=== PATIENT | female | born 2000 | race Two or more races ===

== ENCOUNTER 2025-04-01 11:13 | Outpatient (AMB) | payer MEDICAID, SELFPAY ==
[2025-04-01 11:34] VITALS: BP 115/72; PULSE 81; RESP 17; TEMP 36.4; O2SAT 98; BMI 32.7
--- NOTE | 2025-04-01 11:34 | AMB.OBVISIT ---
Vital Signs 04/01/25 11:34 Height 1.52 m Height Method Measured Weight 75.977 kg Weight Measurement Method Standing Scale BMI 32.7 BP 115/72 Blood Pressure Source Automatic Cuff Blood Pressure Location Right Upper Arm Position Sitting Respiration 17 Pulse 81 Pulse Source Monitor Temp 97.5 F Temp Source Temporal Artery Scan Pulse Oximetry (%) 98 Oxygen Delivery Method Room Air Allergies/Home Meds Allergies & Medications Allergies shrimp Allergy (Verified 04/01/25 11:35) Rash Medication Reconciliation prenat.vits,serina,[id number] 1 tab PO QDAY 08/14/22 [History Confirmed 04/01/25] acetaminophen 500 mg capsule 500 mg PO Q6H PRN fever or pain #20 caps 09/13/22 [Rx Confirmed 04/01/25] albuterol sulfate 90 mcg/actuation aerosol inhaler inhalation PRN PRN Shortness Of Breath Or Wheezing 10/13/22 [History Confirmed 04/01/25] clotrimazole 2 % vaginal cream (Gyne-Lotrimin) 1 appful vaginal QHS 7 days #21 grams 03/01/25 [Rx Confirmed 04/01/25] vits no.130-ferrous fum 27 mg iron-folic acid 800 mcg tablet ( Vitamin) 1 tab PO QDAY pregancy #60 tabs 04/01/25 [Rx] Intake Visit Data Collection New Patient or Established: Established Patient (seen at [facility] within 3 years) Reason for Visit:: [facility] Consent obtained for Telemed Visit: No Seen by Clinical Staff ONLY (RN/MA): No Acoustic Warfare Analyst Required: No Do You Feel Safe at Home: Yes Authorities Contacted: N/A PCP or OBGYN visit in last 3 months: Yes Date of Last PCP or OBGYN visit: 03/01/25 Hx Now: Yes Are you currently on any form of Control: No Pain Present Currently: No Pain Scale Used: Chery-Patel/Numerical Pain scale:: 0 Smoking Status Smoking Status: Never smoker Questionnaires Covid-19 Vaccine Questionnaire Has patient been vacinated for Covid-19 Have you been vacinated for Covid-19: No PHQ-9 PHQ-2 Over the last 2 weeks, how often have you been bothered by any of the following problems? 1. Little interest or pleasure in doing things: not at all PHQ-9 8. Moving or speaking so slowly that other people could have noticed? - Or the opposite - being so fidgety or restless that you have been moving around a lot more than usual: not at all Source: Developed by Drs. Ren Mckeon, Candi Champagne, Dakota Borrego and colleagues, with an educational italo from [employer] ([employer]). Social History Living Situation History Housing: House Tobacco History Smoking Status: Never smoker Alcohol History Alcohol Intake: Never Domestic Abuse History Do You Feel Safe at Home: Yes PATIENT RELATIONS REPRESENTATIVE: Past Medical History Past Medical History: No Hx Neurological Disorders, No Hx Cardiac Disorders, No Hx Cancer, No Hx Blood Disorders, Yes Hx Gastrointestinal Disorders (constipation and cholestasis), No Hx Renal Disease, No Hx Diabetes Mellitus Type 1 and No Hx Diabetes Mellitus Type 2 Care OB Visit Log OB Flowsheet Initial Weight: Not Recorded Date <del>?</del> EGA Weight BP Alb Glu CTX Pres Fundal ht FHR Mov Dilation Station Effacement Hx Notes Visit Note 03/01/25 <del>?</del> 15w 4d 73.595 kg 73.595 kg 112/74 112/74 absent unknown 15 145 active 24-year-old 2 para 1 at 15 weeks. New OB with complaints of vaginal discharge and burning unclear denies SAB complaints. Green discharge noted. Order PATIENT RELATIONS REPRESENTATIVE Lotrimin 1-2 per vagina nightly x 7. New swab plus today. PATIENT RELATIONS REPRESENTATIVE Lotrimin x 7 days. Schedule anatomy scan. I reviewed labs and chart with patient. aFP next visit. Discussed SAB precautions 04/01/25 <del>?</del> 20w 0d 75.977 kg 115/72 absent unknown 20 145 active Reports movement. Maternal- medicine was not called patient. Denies leaking, denies bleeding, denies contractions. Patient needs refill on prenatals. Complains of itching chest feet hands. Previous history of cholestasis in Cholestasis labs today. Discussed OB labs. MFM ultrasound pending. Comfort measures for body itching. Discussed labor precautions and return in 4 weeks OB check UNIQUE Calculator Estimated Delivery Date Method Current WG Current Estimate 08/19/25 Ultrasound #1 20w 0d Other Estimates 01/01/26 LMP (Certain) 21w 0d Notes Visit Date: 04/01/25 Last Updated by: Shelley Cody CNM NIPT-.AFP- Visit Date: 03/01/25 Last Updated by: Shelley Cody CNM 24 yo . lmp 11/05/24. edc: 08/12/25. A+.abs-,rpr;;nr, rub imm, HBSAG-,hiv-, hc-, GC/CT-, UC:-, UT-, NIPT_, carrier screen-, PAP- Office Procedures OB Clinic LOC & Office Proc's Nursing/Assessment Patient Status: Established Patient OB Clinic Nursing Assessment: Medication Reconciliation, Update PMH in EMR and Vital Signs OB Clinic Coordination of Care: Complex Care and Chronic Disease 1-5, Education Complex Pt/Fam and Results/Orders obtained Special Needs: Heart tones Established Patient Charge Established Patient Point Assignment: 110 Established Patient Point Charge: EP Level 3 (80-115) Assessment & Plan Diagnosis / Problem List (1) Encounter for supervision of high risk in second trimester, antepartum: Status: Acute Plan Cholestasis labs today. Patient will call [facility] for MFM appointment. Discussed labor precautions. Discussed comfort measures for body itching. Manage discussed AFP with patient. Return in 4 weeks for recheck Additional Plan Follow Up: 4 Weeks (obc)
== END 2025-04-01 12:07 | disposition home or self-care (01) ==
LOC: HODSOBC 11:13
PROVIDERS: Supervising Provider Advanced Practice Midwife; Visit Provider Advanced Practice Midwife
DX: O09.292 Supervision of pregnancy with other poor reproductive or obstetric history, second trimester (principal); Z87.59 Personal history of other complications of pregnancy, childbirth and the puerperium; Z87.19 Personal history of other diseases of the digestive system; Z91.013 Allergy to seafood
CPT/HCPCS: 99213; G0463

== ENCOUNTER 2025-04-22 11:55 | Emergency (ER) | payer MEDICAID, SELFPAY ==
[2025-04-22] VITALS (19 sets, daily range): BP systolic 113–124; BP diastolic 72; PULSE 94–114; RESP 18–100; TEMP 37.1–37.5; O2SAT 97–100; BMI 31.1
--- NOTE | 2025-04-22 12:22 | EKG_ITS ---
[facility] Test Date: 2025-04-22 Pat Name: CONSUELO DING Department: Room: - Gender: Female Revising Clerk: : [id number] Requested By: José Miguel Caraballo (ROGER) Order Number: [id number] Reading MD: José Miguel Caraballo (MONORAIL OPERATOR) Measurements Intervals [place] Rate: 93 P: 52 MT: 150 QRS: 54 QRSD: 92 T: 8 QT: 304 QTc: 380 Interpretive Statements SINUS RHYTHM NONSPECIFIC T-WAVE ABNORMALITY No previous ECG available for comparison /store/S0/[id number].pdf
--- NOTE | 2025-04-22 12:24 | XR_ITS ---
Examination: PA chest single view TECHNIQUE: Upright PA chest single view Date and time: April 22, 2025 1255 hours INDICATIONS: Chest pain shortness of breath headaches beginning 5 days ago. FINDINGS: Normal heart size. Lungs are clear. The osseous structures are intact IMPRESSION: No active disease
--- NOTE | 2025-04-22 12:25 | PD.EDRME ---
Rapid Medical Screening Exam RME Arrival date/time: 04/22/25 11:55 24-year-old female presents to the emergency department today for complaints of chest pressure and chest pain patient reports being approximate 24 weeks patient was seen OB and was referred to the ER for further evaluation Chief Complaint: Chest Pain Vital signs: Vital Signs Temperature 98.8 F 04/22/25 10:31 Pulse Rate 110 H 04/22/25 10:31 Respiratory Rate 20 04/22/25 10:31 Blood Pressure 124/72 04/22/25 10:31 Pulse Oximetry (%) 100 04/22/25 10:31 Oxygen Delivery Method Room Air 04/22/25 10:31
[2025-04-22 13:03] LABS: Basophils # (Auto) 0.0 Thou/mm3 (0.0-0.2); Basophils % (Auto) 0 % (0-2.5); Eosinophils # (Auto) 0.1 Thou/mm3 (0.0-0.5); Eosinophils % (Auto) 2 % (0-10); Hematocrit 34.7 % (36.0-46.0); Hemoglobin 11.9 g/dL (12.0-16.0); Immature Granulocytes Auto 0.13 Thou/mm3 (0.00-0.00); Lymphocytes # (Auto) 1.2 Thou/mm3 (1.0-4.8); Lymphocytes % (Auto) 15 % (10-50); Mean Corpuscular HGB Conc 34.3 g/dl (31.0-37.0); Mean Corpuscular Hemoglobin 30.4 pg (25.0-35.0); Mean Corpuscular Volume 89 fL (80-100); Monocytes # (Auto) 0.7 Thou/mm3 (0.0-0.8); Monocytes % (Auto) 9 % (0-12); Neutrophils # (Auto) 5.8 Thou/mm3 (1.8-7.7); Neutrophils % (Auto) 73 % (37-80); Nucleated Red Blood Cell # 0.00 Thou/mm3 (0.00-0.00); Nucleated Red Blood Cell % 0 /100 WBC (0); Platelet Count 192 Thou/mm3 (140-440); RDW Standard Deviation 42.5 fL (36.4-46.3); Red Blood Count 3.91 Miln/mm3 (4.00-5.20); White Blood Count 7.9 Thou/mm3 (3.6-11.0)
[2025-04-22 13:23] LABS: Alanine Aminotransferase 16 U/L (10-49); Albumin, Serum 4.0 gm/dL (3.5-5.0); Albumin/Globulin Ratio 1.7 (1.2-2.2); Alkaline Phosphatase 135 U/L (46-116); Anion Gap 8 (7-16); Aspartate Amino Transferase 19 U/L (0-34); BUN/Creatinine Ratio 10 Ratio (12-20); Bilirubin,Total 0.4 mg/dL (0.3-1.2); Blood Urea Nitrogen 6 mg/dL (9-23); Calcium 9.2 mg/dL (8.3-10.6); Calcium (Corrected) 9.2 mg/dL (8.5-10.1); Carbon Dioxide 24.9 mMol/L (20.0-31.0); Chloride 103 mMol/L (98-107); Creatinine (Component) 0.6 mg/dL (0.6-1.3); Estimated Creatinine Clearance 139.0 mL/min (>60); Globulin 2.4 gm/dL (2.3-3.5); Glucose 77 mg/dL (74-106); Osmolality,Calculated 268 (275-295); Potassium 3.9 mMol/L (3.4-5.1); Sodium 136 mMol/L (136-145); Total Protein 6.4 gm/dL (5.7-8.2); Troponin I < 0.002 ng/mL (0.0-0.045); eGFR > 60 See Note
[2025-04-22 13:32] LABS: D-Dimer 620 ng/mL (<600)
[2025-04-22 13:44] LABS: Beta HCG,Quantitative 5623 mIU/mL (<5.0)
--- NOTE | 2025-04-22 14:56 | PD.EDSOB ---
ED SOB =RME/HPI General Chief Complaint: Chest Pain Stated Complaint: SOB, C/P. OB CLEARED Time Seen by Provider: 04/22/25 12:25 Arrival date/time: 04/22/25 11:55 Limitations: no limitations RME / HPI RME / HPI Narrative: 04/22/25 11:55 24-year-old female presents to the emergency department today for complaints of chest pressure and chest pain patient reports being approximate 24 weeks patient was seen OB and was referred to the ER for further evaluation DR. SOUZA MAIN ED EVALUATION: 24 year old female with history of asthma and currently 24 weeks gestational age presents to the ED referred by her OBGYN for evaluation of chest pain. Pain located across her chest that is described as aching in sensation, rating as mild to moderate. Accompanied by feeling short of breath. Reportedly used her inhaler last night with no improvement. No other associated symptoms or complaints reported. Denies dizziness, fevers, chills, cough, abdominal pain, n/v/d, urinary symptoms, or leg swelling. Related Data Home Medications ?Medication ?Instructions ?Recorded ?Confirmed prenat.vits,serina,[id number] 1 tab PO QDAY 08/14/22 04/01/25 albuterol sulfate 90 mcg/actuation inhalation PRN PRN Shortness Of 10/13/22 04/01/25 aerosol inhaler Breath Or Wheezing Previous Rx's ?Medication ?Instructions ?Recorded acetaminophen 500 mg capsule 500 mg PO Q6H PRN fever or pain 09/13/22 #20 caps clotrimazole 2 % vaginal cream 1 appful vaginal QHS 7 days #21 03/01/25 (Gyne-Lotrimin) grams vits no.130-ferrous fum 1 tab PO QDAY pregancy #60 tabs 04/01/25 27 mg iron-folic acid 800 mcg tablet ( Vitamin) fluticasone 250 mcg-salmeterol 50 1 inh inhalation Q12H asthma #60 ea 04/22/25 mcg/dose blistr powdr for inhalation (Advair Diskus) Allergies Allergy/AdvReac Type Severity Reaction Status Date / Time shrimp Allergy Rash Verified 04/22/25 12:10 Review of Systems Review of Systems Systems Reviewed: All systems reviewed, normal except as documented Past Medical History Past Medical History NEUROLOGIC: Negative Neurological Disorders CARDIAC: Negative Cardiac Disorders RESPIRATORY: Positive Asthma (uses inhaler) GASTROINTESTINAL: Positive Gastrointestinal Disorders (constipation and cholestasis) GENITOURINARY: Negative Genitourinary Disorders or Renal Disease MUSCULOSKELETAL: Negative Musculoskeletal Disorders ENDOCRINE: Negative Endocrine Disorders Family History FAMILY HISTORY: Positive Family Cardiac Disorders (blood pressure high, grandmothers) Surgical History SURGICAL: Negative Section Social History SMOKING STATUS: Never smoker ED Exam General Limitations: Present no limitations General appearance: Present alert and in no apparent distress Head Head exam: Present atraumatic, normocephalic and normal inspection Eye Eye exam: Present normal appearance, PERRL and EOMI ENT ENT exam: Present normal exam, normal oropharynx and mucous membranes moist Neck Neck exam: Present normal inspection, full ROM and trachea midline Chest Chest inspection: Present normal inspection and symmetric chest wall rise Respiratory Respiratory exam: Present other (Slight coarse breath sounds in the mid lung lobes to bilateral lower lobes, no wheezing, no rhonchi, no rales ) Cardiovascular Cardiovascular exam: Present regular rate, normal rhythm and normal heart sounds Abdominal Exam Abdominal exam: Present soft, normal bowel sounds and other (gravid fundus consistent with gestational age ) Extremities Exam Extremities exam: Present normal inspection and full ROM Back Exam Back exam: Present normal inspection and full ROM Neurological Exam Neurological exam: Present alert, oriented X3 and CN II-XII intact Psychiatric Psychiatric exam: Present normal affect and normal mood Skin Skin exam: Present warm, dry, intact and normal color Course Quality Measures none Orders Category Date Time Status Place in Observation Status Routine Admission 04/22/25 10:25 Active Continuous Monitoring Routine Care 04/22/25 11:49 Ordered EKG (ED ONLY) *Do not use* NOW Care 04/22/25 12:22 Completed Non-Stress Test Now Care 04/22/25 11:49 Completed EKG (ED Only) Stat Exams 04/22/25 12:22 Draft XR chest 1V portable Stat Exams 04/22/25 12:24 Completed Beta HCG,Quantitative Stat Lab 04/22/25 12:44 Completed CBC Stat Lab 04/22/25 12:44 Completed Comprehensive Metabolic Panel Stat Lab 04/22/25 12:44 Completed D-Dimer Stat Lab 04/22/25 12:44 Completed Troponin I Stat Lab 04/22/25 12:44 Completed ALBUTEROL RT 3ml [Proventil Rt 3ml] Med 04/22/25 14:56 Discontinued 2.5 mg INH X1 ONE Vital Signs Vital signs: Vital Signs Temperature 98.8 F 04/22/25 10:31 Pulse Rate 110 H 04/22/25 10:31 Respiratory Rate 20 04/22/25 10:31 Blood Pressure 124/72 04/22/25 10:31 Pulse Oximetry (%) 100 04/22/25 10:31 Oxygen Delivery Method Room Air 04/22/25 10:31 Pulse ox is 100% on room air which is adequate. Shortness of Breath / Dyspnea MDM Narrative MDM Narrative:: Elsie Powell am scribing for and in the presence of Dr. Souza. 24 year old female with history of asthma and currently 24 weeks gestational age, presented to the ED for evaluation of chest pain and shortness of breath. We considered pulmonary embolism along with pneumonia, and asthma exacerbation. A D-Dimer was performed and was normal at 602. Likelihood of symptoms being due to a pulmonary embolism is much lower. In the ED, patient was treated with Albuterol breathing treatment with improvement. Strict return precautions were outlined. Patient was discharged in stable condition. Patient data External records reviewed:: [facility] previous records (I reviewed ED visit on 09/11/2022 ) Clinical information provided by:: patient Social determinants that could affect healthcare access:: none Patient has the following chronic illnesses:: Asthma How is presenting disease/condition affected by chronic disease/condition?: exacerbated by Evaluation data The following diagnostics were reviewed and interpreted by me:: lab results, radiology exam(s) and EKG tracing(s) (EKG @ 12:23, NSR, rate 93, no acute ischemic changes, no STEMI. ) Lab and/or radiology exams considered but not ordered:: None Interpretation Summary: Ordering Physician: Ilya FIGUEREDO)José Miguel NP Date of Service: 04/22/25 Procedure(s): XR chest 1V portable Accession Number(s): [id number] cc: José Miguel Caraballo NP, NP; Dustin Lagos MD; Mitzi Almanzar MD~ Examination: PA chest single view TECHNIQUE: Upright PA chest single view Date and time: April 22, 2025 1255 hours INDICATIONS: Chest pain shortness of breath headaches beginning 5 days ago. FINDINGS: Normal heart size. Lungs are clear. The osseous structures are intact IMPRESSION: No active disease Dictated By: Dustin Lagos MD Signed By: <Electronically signed by Dustin Lagos MD in OV> 04/22/25 1303 Medications / Prescriptions Medications or Prescriptions considered but not ordered:: None Medication administrations:: Medication Administration History Discontinued Medications Albuterol (Albuterol Rt 2.5 Mg/3 Ml Nebu) 2.5 mg INH X1 ONE Stop: 04/22/25 14:57 Last Admin: 04/22/25 15:08 Dose: 2.5 mg Documented By: AA See above Consultations Consultation(s) initiated? (list below): Yes Consultation #1 (Physician, Specialty, Details): I spoke with OBGYN Dr. Bowling. Discussed patients PMHx, HPI, ED course, exam findings, labs, and radiology results. Time: 15:05 Diagnosis Shortness of Breath Differential Diagnosis: community acquired pneumonia, asthma with exacerbation and pulmonary embolism Most likely diagnosis given after review of the tests above:: Costochondritis Asthma with exacerbation Shortness of breath Admission Indicated Admission indicated?: not indicated Admission Request Was there a request for admission?: No Disposition Plan Disposition Plan: Discharge Discharge Attestation Discharge Attestation: The patient and all family members were given an opportunity to ask questions and understood the discharge instructions. Discharge instructions specifically effects, indications for sooner follow up or return to the emergency department, and the expected course of current diagnosis. Patient condition: Stable Discharge Plan Plan Patient Disposition: HOME (Self Care) Prescriptions/Referrals Prescriptions/Med Rec: New fluticasone propion-salmeterol [Advair Diskus] 250-50 mcg/dose blister with device 1 inh inhalation Q12H MDD 2 inhalations Qty: 60 0RF No Action Gyne-Lotrimin 2 % cream 1 appful vaginal QHS 7 Days Qty: 21 1RF Vitamin 27 mg iron- 800 mcg tablet 1 tab PO QDAY Qty: 60 2RF prenat.vits,serina,[id number] Tablet 1 tab PO QDAY albuterol sulfate 90 mcg/actuation HFA aerosol inhaler INHALATION PRN PRN (Reason: Shortness Of Breath Or Wheezing) acetaminophen 500 mg capsule 500 mg PO Q6H PRN (Reason: fever or pain) Qty: 20 0RF Referrals: Mitzi Almanzar MD [Primary Care Provider] - In 1 week Problem List Clinical Impression: Costalchondritis, Asthma with exacerbation, Shortness of breath Patient/Caregiver Discharge Instructions Education Materials: Costochondritis, Asthma Medicine, Asthma Additional Instructions: Use your Albuterol inhaler 4 times a day. Follow-up with your primary care doctor or OBGYN in 3 days for recheck. You can return to the emergency department sooner if symptoms worsen or if you notice any new, concerning issues. Print Language: Citizen [place] Stand Alone Forms: Rula Award Info., Patient Portal Info Letter
[2025-04-22] MEDS: ALBUTEROL RT 2.5 MG/3 ML NEBU INH (15:08)
== END 2025-04-22 15:33 | disposition home or self-care (01) ==
PROVIDERS: Nurse Practitioner Primary Care; Emergency Provider Family Medicine; PCP Student in an Organized Health Care Education/Training Program
DX: O99.512 Diseases of the respiratory system complicating pregnancy, second trimester (principal); M94.0 Chondrocostal junction syndrome [Tietze]; J45.901 Unspecified asthma with (acute) exacerbation; Z3A.24 24 weeks gestation of pregnancy
CPT/HCPCS: 36415; 59025; 71045; 80053; 84484; 84702; 85025; 85379; 93005; 94640; 99284

== ENCOUNTER 2025-04-25 18:40 | Emergency (ER) | payer MEDICAID, SELFPAY ==
[2025-04-25] VITALS (12 sets, daily range): BP systolic 101–125; BP diastolic 54–85; PULSE 92–119; RESP 19–99; TEMP 37.7–38.8; O2SAT 96–100; BMI 30.7
--- NOTE | 2025-04-25 19:40 | PD.EDRME ---
Rapid Medical Screening Exam RME Arrival date/time: 04/25/25 18:41 This is a case of 24-year-old female with no medical history came in in the emergency room due to fever headache nausea vomiting today patient is 24 weeks 2 para 1 patient is febrile and tachycardic at the time of exam maternal sepsis was ordered request charge nurse for a stat bed to be seen by a ED physician Chief Complaint: Chest Pain Time Seen by Provider: 04/25/25 18:44 Vital signs: Vital Signs Temperature 101.4 F H 04/25/25 19:22 Pulse Rate 114 H 04/25/25 19:22 Respiratory Rate 20 04/25/25 19:22 Blood Pressure 108/85 H 04/25/25 19:22 Pulse Oximetry (%) 98 04/25/25 19:22 Oxygen Delivery Method Room Air 04/25/25 19:22
--- NOTE | 2025-04-25 20:28 | EDNOTE_ITS ---
ED Chest Pain RME/HPI General Chief Complaint: Chest Pain Stated Complaint: CHEST PAIN, HEADACHE, R) UPPER THIGH PAIN Time Seen by Provider: 04/25/25 18:44 Arrival date/time: 04/25/25 18:41 RME / HPI RME / HPI narrative: 04/25/25 18:41 This is a case of 24-year-old female with no medical history came in in the emergency room due to fever headache nausea vomiting today patient is 24 weeks 2 para 1 patient is febrile and tachycardic at the time of exam maternal sepsis was ordered request charge nurse for a stat bed to be seen by a ED physician Dr. Boykin?s Main ED Evaluation: 24yo female with EGA 24 weeks coming in with onset generalized headache and substernal chest pressure x 1 week with recent onset fever x 2-3 days. Denies URI or cough. No abdominal pain, vag inal bleeding, or negron of fluid. Denies dysuria, diarrhea. 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 PMH includes childhood asthma. PSH bunionectomy. Nondrinker, nonsmoker, no illicit drug abuse. Related Data Home Medications ?Medication ?Instructions ?Recorded ?Confirmed prenat.vits,serina,ocr-jtbh-wgfpv 1 tab PO QDAY 08/14/22 04/01/25 albuterol sulfate 90 mcg/actuation inhalation PRN PRN Shortness Of 10/13/22 04/01/25 aerosol inhaler Breath Or Wheezing Previous Rx's ?Medication ?Instructions ?Recorded acetaminophen 500 mg capsule 500 mg PO Q6H PRN fever o r pain 09/13/22 #20 caps clotrimazole 2 % vaginal cream 1 appful vaginal QHS 7 days #21 03/01/25 (Gyne-Lotrimin) grams vits no.130-ferrous fum 1 tab PO QDAY preganc y #60 tabs 04/01/25 27 mg iron-folic acid 800 mcg tablet ( Vitamin) fluticasone 250 mcg-salmeterol 50 1 inh inhalation Q12 H asthma #60 ea 04/22/25 mcg/dose blistr powdr for inhalation (Advair Diskus) acetaminophen 300 mg-codeine 15 mg 1 tab PO Q8H PRN pa in #16 tabs 04/26/25 tablet nitrofurantoin 100 mg PO Q12H 5 days #10 ca ps 04/26/25 monohydrate/macrocrystals 100 mg capsule (Macrobid) promethazine 12.5 mg tablet 12.5 mg PO TID PRN nausea and 04/26/25 vomiting #14 tabs Allergies Allergy/AdvReac Type Severity Reaction Status Date / Time shrimp Allergy Rash Verified 04/25/25 18:45 Review of Systems Review of Systems Systems Reviewed: All systems reviewed, normal except as documented Past Medical History Past Medical History NEUROLOGIC: Negative Neurological Disorders CARDIAC: Negative Cardiac Disorders or Congestive Heart Failure RESPIRATORY: Positive Asthma (uses inhaler); Negative Chronic Obstructive Pulmonary Disease (COPD) GASTROINTESTINAL: Positive Gastrointestinal Disorders (constipation and cholestasis) GENITOURINARY: Negative Genitourinary Disorders or Renal Disease REPRODUCTIVE: Negative Pelvic Inflammatory Disease MUSCULOSKELETAL: Negative Musculoskeletal Disorders ENDOCRINE: Negative Endocrine Disorders, Diabetes Mellitus Type 1 or Diabetes Mellitus Type 2 HEMATOLOGIC: Negative Blood Disorders OTHER HISTORY: Negative Blood Transfusions, Anesthesia Reactions or Cancer Family History FAMILY HISTORY: Positive Family Cardiac Disorders (blood pressure high, grandmothers) Surgical History SURGICAL: Negative Section Social History SMOKING STATUS: Never smoker ED Exam Narrative Physical exam: GENERAL APPEARANCE: alert and oriented x 4, well-developed, well-nourished, nontoxic, no acute distress VITALS: All vitals were reviewed and the pulse ox is 100% on room air, which is normal according to my interpretation. Notably febrile and tachycardic. HEENT: Normocephalic, atraumatic; pupils equal, round, reactive to light; EOMI; mucous membranes pink, moist; oropharyngeal injection with vesicles visualized, no exudate or tonsillar hypertrophy NECK: Supple LUNGS: CTABL; no wheezes, no rales, no rhonchi HEART: Tachycardic, regular rhythm; normal S1, S2; no murmurs ABDOMEN: non distended; soft, no tenderness, no guarding EXTREMITIES: atraumatic; no edema NEUROLOGIC: awake; alert and oriented x4; cranial nerves II-XII grossly intact; no focal sensory or motor deficits PSYCHIATRIC: appropriate mood and affect SKIN: warm, diaphoretic, normal color; no rashes Course Course Course Narrative: 1938: Sepsis alert initiated. Orders made at this time are congruent with ED Adult Sepsis Order List. Re-evaluation is to be completed. 2140: NS IVF infused. 2210: Sepsis reassessment performed consisting of lab review, vitals, physical exam including auscultation of heart, lungs, and visual evaluation of capillary refills, mucosal membranes and extremities. Patient met SIRS criteria however lactic, WBC, and pro serina are all within normal range. Reassessment complete, patient is not septic. Quality Measures Current suspected stage: ruled out Possible source: unknown Blood cultures ordered: yes Antibiotic ordered: Yes Pertinent labs: 04/25/25 20:20 Lactic Acid 1.2 mMol/L (0.4-2.0) Procalcitonin 0.12 ng/ml (0.0-0.49) sepsis Orders Category Date Time Status Bedside COVID-19 Antigen Test NOW Care 04/25/25 19:39 Active Bedside Influenza A&B Antigen Test NOW Care 04/25/25 19:40 Completed Blood Culture (Lab) Stat Lab 04/25/25 20:20 Received CBC Stat Lab 04/25/25 20:20 Completed Comprehensive Metabolic Panel Stat Lab 04/25/25 20:20 Completed HCG Qualitative,Urine Stat Lab 04/25/25 20:20 Completed Lactic Acid [Lactate (Lactic Acid)] Stat Lab 04/25/25 20:20 Completed Procalcitonin Stat Lab 04/25/25 20:20 Completed Urinalysis Stat Lab 04/25/25 20:20 Completed Acetaminophen Tab [Tylenol Tab] Med 04/25/25 20:27 Discontinued 325 mg PO X1 ONE Acetaminophen Tab [Tylenol Tab] Med 04/25/25 19:49 Discontinued 650 mg PO X1 ONE Piper/Tazo 3.375 gm Premix [Zosyn] Med 04/25/25 19:53 Discontinued 3.375 gm in 50 ml IV X1 Sodium Chloride 0.9% 1000 ml [Ns] 1,000 ml Med 04/25/25 19:49 Discontinued IV 999 mls/hr Sodium Chloride 0.9% 1000 ml [Ns] 1,000 ml Med 04/25/25 19:54 Discontinued IV 999 mls/hr Vancomycin Pharmacy to Dose Med 04/26/25 09:00 Discontinued 1 each IV QDAY Vancomycin/Ns 1 gm Ivpb 200 ml Med 04/25/25 20:30 Discontinued IV X1 Vital Signs Vital signs: Vital Signs Temperature 101.4 F H 04/25/25 19:22 Pulse Rate 114 H 04/25/25 19:22 Respiratory Rate 20 04/25/25 19:22 Blood Pressure 108/85 H 04/25/25 19:22 Pulse Oximetry (%) 98 04/25/25 19:22 Oxygen Delivery Method Room Air 04/25/25 19:22 Chest Pain [facility] Narrative [facility] Narrative:: Scribe Attestation: 04/25/25 - Tessa Powell am scribing for and in the presence of Dr. Boykin. 24yo female with EGA 24 weeks coming in with onset generalized headache and substernal chest pressure x 1 week with recent onset fever x 2-3 days. Denies URI or cough. Please see PE findings. Lab markers demonstrated normal WBC count, no left shift or bandemia. Chemistries unremarkable. UA demonstrates mild UTI. Patient enrolled in sepsis protocol and treated with empiric antibiotics and IVF with overall clinical improvement and normalization of vital signs. Suspect underlying viral illness with superimposed UTI. Will treat accordingly. Precaution instructions issued. Patient data External records reviewed:: [facility] previous records (Per chart review, patient was seen here on 04/22/25 for asthma exacerbation.) Clinical information provided by:: patient Social determinants that could affect healthcare access:: none Patient has the following chronic illnesses:: asthma How is presenting disease/condition affected by chronic disease/condition?: uneffected by Evaluation data The following diagnostics were reviewed and interpreted by me:: lab results, radiology exam(s) and EKG tracing(s) Lab and/or radiology exams considered but not ordered:: none Interpretation Summary: See [facility] Medications / Prescriptions Medications or Prescriptions considered but not ordered:: none Medication administrations:: Medication Administration History Discontinued Medications Acetaminophen (Acetaminophen 325 Mg Tablet) 650 mg PO X1 ONE Stop: 04/25/25 19:50 Last Admin: 04/25/25 20:37 Dose: 650 mg Documented By: DAVE Acetaminophen (Acetaminophen 325 Mg Tablet) 325 mg PO X1 ONE Stop: 04/25/25 20:28 Last Admin: 04/25/25 20:39 Dose: 325 mg Documented By: DAVE Sodium Chloride (Ns) 1,000 mls @ 999 mls/hr IV .Q1H1M ONE Stop: 04/25/25 20:49 Last Infusion: 04/25/25 21:40 Dose: Infused Documented By: Admin: 04/25/25 20:37 Dose: 999 mls/hr Documented By: DAVE Piperacillin/Tazobactam/Dextrose (Zosyn) 3.375 gm in 50 mls @ 100 mls/hr IV X1 ONE; Protocol Stop: 04/25/25 20:22 Last Infusion: 04/25/25 21:05 Dose: Infused Documented By: Admin: 04/25/25 20:35 Dose: 100 mls/hr Documented By: DAVE Sodium Chloride (Ns) 1,000 mls @ 999 mls/hr IV .Q1H1M ONE Stop: 04/25/25 20:54 Last Infusion: 04/25/25 21:40 Dose: Infused Documented By: Admin: 04/25/25 20:39 Dose: 999 mls/hr Documented By: DAVE Vancomycin/Sodium Chloride (Vancomycin/Ns 1 Gm Ivpb) 200 mls @ 133.333 mls/hr IV X1 ONE Stop: 04/25/25 21:59 Pharmacy Consult (Vancomycin Pharmacy To Dose 1 Each Each) 1 each IV QDAY SYED Stop: 05/26/25 08:59 see above Consultations Consultation(s) initiated? (list below): No Diagnosis Chest Pain Differential Diagnosis: atypical chest pain, costochondritis and other (dehydration, electrolyte abnormality, COVID, Influenza, viral syndrome) Most likely diagnosis given after review of the tests above:: see clinical impression below Admission Indicated Admission indicated?: not indicated Admission Request Was there a request for admission?: No Disposition Plan Disposition Plan: Discharge Discharge Attestation Discharge Attestation: The patient and all family members were given an opportunity to ask questions and understood the discharge instructions. Discharge instructions specifically effects, indications for sooner follow up or return to the emergency department, and the expected course of current diagnosis. Patient condition: Stable Discharge Plan Plan Patient Disposition: HOME (Self Care) Discharge Disposition comment: Stable Prescriptions/Referrals Prescriptions/Med Rec: New acetaminophen-codeine 300-15 mg tablet 1 tab PO Q8H PRN (Reason: pain) Qty: 16 0RF promethazine 12.5 mg tablet 12.5 mg PO TID PRN (Reason: nausea and vomiting) Qty: 14 0RF Rx Instructions: May take for nausea/headache. nitrofurantoin monohyd/m-cryst [Macrobid] 100 mg capsule 100 mg PO Q12H 5 Days Qty: 10 0RF Rx Instructions: must administer with a meal/food No Action Gyne-Lotrimin 2 % cream 1 appful vaginal QHS 7 Days Qty: 21 1RF Vitamin 27 mg iron- 800 mcg tablet 1 tab PO QDAY Qty: 60 2RF prenat.vits,serina,rab-qlvz-stina Tablet 1 tab PO QDAY albuterol sulfate 90 mcg/actuation HFA aerosol inhaler INHALATION PRN PRN (Reason: Shortness Of Breath Or Wheezing) acetaminophen 500 mg capsule 500 mg PO Q6H PRN (Reason: fever or pain) Qty: 20 0RF fluticasone propion-salmeterol [Advair Diskus] 250-50 mcg/dose blister with device 1 inh inhalation Q12H MDD 2 inhalations Qty: 60 0RF Referrals: No Primary/Family,Physician [Primary Care Provider] - In 1 week Problem List Clinical Impression: Systemic viral illness, Urinary tract infection during in second trimester, antepartum Patient/Caregiver Discharge Instructions Discharge Activity: activity as tolerated Diet Instructions: For fluids/medication as directed Education Materials: ED CYSTITIS Female Adult, ED Viral Syndrome (Adult) Additional Instructions: Force fluids/medication as directed. Follow-up with LEGAL ANALYST physician within 5 to 7 days return if worsening. Print Language: Slovak Stand Alone Forms: [employer]ula Award Info., Patient Portal Info Letter
[2025-04-25] MEDS: PIPER/TAZO 3.375 GM PREMIX 3.375 GM/50 ML BAG IV (20:35)
--- NOTE | 2025-04-25 20:35 | PC.NURSE ---
Dr. Crane at bedside explaining medications ordered-pt agrees to abt ordered zosyn.
[2025-04-25] MEDS: SODIUM CHLORIDE 0.9% 1000 ML 1,000 ML 999 ML IV ×2 (20:37→20:39)
[2025-04-25] MEDS: ACETAMINOPHEN 325 MG TABLET 650 MG PO (20:37)
[2025-04-25] MEDS: ACETAMINOPHEN 325 MG TABLET PO (20:39)
[2025-04-25 20:46] LABS: Collection Type, Urine Clean Catch
[2025-04-25 20:49] LABS: Lactate (Lactic Acid) 1.2 mMol/L (0.4-2.0)
[2025-04-25 20:50] LABS: Basophils # (Auto) 0.1 Thou/mm3 (0.0-0.2); Basophils % (Auto) 1 % (0-2.5); Eosinophils # (Auto) 0.2 Thou/mm3 (0.0-0.5); Eosinophils % (Auto) 2 % (0-10); Hematocrit 37.8 % (36.0-46.0); Hemoglobin 12.7 g/dL (12.0-16.0); Immature Granulocytes Auto 0.24 Thou/mm3 (0.00-0.00); Lymphocytes # (Auto) 1.0 Thou/mm3 (1.0-4.8); Lymphocytes % (Auto) 10 % (10-50); Mean Corpuscular HGB Conc 33.6 g/dl (31.0-37.0); Mean Corpuscular Hemoglobin 29.5 pg (25.0-35.0); Mean Corpuscular Volume 88 fL (80-100); Monocytes # (Auto) 0.7 Thou/mm3 (0.0-0.8); Monocytes % (Auto) 7 % (0-12); Neutrophils # (Auto) 7.6 Thou/mm3 (1.8-7.7); Neutrophils % (Auto) 79 % (37-80); Nucleated Red Blood Cell # 0.00 Thou/mm3 (0.00-0.00); Nucleated Red Blood Cell % 0 /100 WBC (0); Platelet Count 236 Thou/mm3 (140-440); RDW Standard Deviation 42.7 fL (36.4-46.3); Red Blood Count 4.30 Miln/mm3 (4.00-5.20); White Blood Count 9.7 Thou/mm3 (3.6-11.0)
[2025-04-25 20:52] LABS: HCG Qualitative,Urine Positive
[2025-04-25 21:10] LABS: Bacteria,Urine 1+; Bilirubin,Urine Negative (Negative); Blood,Urine Negative (Negative); Clarity,Urine Turbid (Clear/Hazy); Color,Urine Lt-Yellow (Lt Yel-Yel); Glucose, Urine Negative (Negative); Ketones,Urine Negative (Negative); Leukocyte Esterase,Urine Positive (Negative); Nitrite,Urine Negative (Negative); PH,Urine 6.5 (5.0-7.0); Protein,Urine Negative (Neg - Trace); RBC,Urine 5 /hpf (0-3); Specific Gravity,Urine 1.008 (1.001-1.035); Squamous Epithelial Cell,Urine 4 /hpf (0-5); Urobilinogen,Urine Negative mg/dL (0.0-1.0); WBC,Urine 15 /hpf (0-5)
[2025-04-25 21:21] LABS: Alanine Aminotransferase 25 U/L (10-49); Albumin, Serum 4.1 gm/dL (3.5-5.0); Anion Gap 12 (7-16); Aspartate Amino Transferase 23 U/L (0-34); BUN/Creatinine Ratio 10 Ratio (12-20); Bilirubin,Total 0.6 mg/dL (0.3-1.2); Blood Urea Nitrogen 6 mg/dL (9-23); Calcium 9.1 mg/dL (8.3-10.6); Carbon Dioxide 22.0 mMol/L (20.0-31.0); Chloride 101 mMol/L (98-107); Creatinine (Component) 0.6 mg/dL (0.6-1.3); Estimated Creatinine Clearance 138.2 mL/min (>60); Glucose 75 mg/dL (74-106); Osmolality,Calculated 266 (275-295); Potassium 4.0 mMol/L (3.4-5.1); Sodium 135 mMol/L (136-145); Total Protein 6.8 gm/dL (5.7-8.2); eGFR > 60 See Note
[2025-04-25 21:22] LABS: Albumin/Globulin Ratio 1.5 (1.2-2.2); Alkaline Phosphatase 216 U/L (46-116); Calcium (Corrected) 9.1 mg/dL (8.5-10.1); Globulin 2.7 gm/dL (2.3-3.5); Procalcitonin 0.12 ng/ml (0.0-0.49)
[2025-04-26 01:02] VITALS: BP 100/57; PULSE 79; RESP 18; TEMP 36.6; O2SAT 96
[2025-04-26 01:32] VITALS: BP 100/57; PULSE 79; RESP 19; TEMP 37.1; O2SAT 97
== END 2025-04-26 01:55 | disposition home or self-care (01) ==
PROVIDERS: Nurse Practitioner Family; Emergency Provider Emergency Medicine
DX: O23.42 Unspecified infection of urinary tract in pregnancy, second trimester (principal); N39.0 Urinary tract infection, site not specified; O98.512 Other viral diseases complicating pregnancy, second trimester; B34.9 Viral infection, unspecified; Z3A.24 24 weeks gestation of pregnancy
CPT/HCPCS: 36415; 80053; 81001; 81025; 83605; 84145; 85025; 87040; 87400; 87811; 96360; 99283; J2543; J7030; A9270

== ENCOUNTER 2025-05-03 10:54 | Outpatient (AMB) | payer MEDICAID, SELFPAY ==
[2025-05-03 11:05] VITALS: BP 106/68; PULSE 86; RESP 17; TEMP 36.5; O2SAT 98; BMI 30.5
--- NOTE | 2025-05-03 11:05 | AMB.GYNCLNOT ---
Vital Signs 05/03/25 11:05 Height 1.57 m Height Method Stated Weight 75.75 kg Weight Measurement Method Standing Scale BMI 30.5 BP 106/68 Blood Pressure Source Automatic Cuff Blood Pressure Location Right Upper Arm Position Sitting Respiration 17 Pulse 86 Pulse Source Monitor Temp 97.7 F Temp Source Temporal Artery Scan Pulse Oximetry (%) 98 Oxygen Delivery Method Room Air Allergies/Home Meds Allergies & Medications Allergies shrimp Allergy (Verified 04/25/25 18:45) Rash Intake Visit Data Collection New Patient or Established: Established Patient (seen at [facility] within 3 years) Reason for Visit:: OBC FOLLOW UP/HOSPITAL FOLLOW UP Seen by Clinical Staff ONLY (RN/MA): No Manager Gyn Required: No Do You Feel Safe at Home: Yes Authorities Contacted: N/A PCP or OBGYN visit in last 3 months: Yes Hx Now: Yes Pain Present Currently: No Smoking Status Smoking Status: Never smoker 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 1. Little interest or pleasure in doing things: not at all PHQ-9 8. Moving or speaking so slowly that other people could have noticed? - Or the opposite - being so fidgety or restless that you have been moving around a lot more than usual: not at all Source: Developed by Drs. Ren Mckeon, Candi Champagne, Dakota Borrego and colleagues, with an educational italo from [employer]. Social History Living Situation History Housing: House Tobacco History Smoking Status: Never smoker Alcohol History Alcohol Intake: Never Domestic Abuse History Do You Feel Safe at Home: Yes Office Procedures OB Clinic LOC & Office Proc's Nursing/Assessment Patient Status: Established Patient OB Clinic Nursing Assessment: Medication Reconciliation, Update PMH in EMR and Vital Signs OB Clinic Coordination of Care: Complex Care and Chronic Disease 1-5, Education Complex Pt/Fam, Consent,records obtained, informed consent, Lab and Imaging orders, Results/Orders obtained and Staff clarify orders Special Needs: Heart tones Established Patient Charge Established Patient Point Assignment: 140 Established Patient Point Charge: EP Level 4 (120-155)
[2025-05-03 11:18] VITALS: BP 106/68; PULSE 86; RESP 17; TEMP 36.5; O2SAT 98
--- NOTE | 2025-05-03 11:18 | AMB.OBVISIT ---
Vital Signs 05/03/25 11:05 05/03/25 11:18 Height 1.57 m Height Method Stated Weight 75.75 kg Weight Measurement Method Standing Scale BMI 30.5 BP 106/68 106/68 Blood Pressure Source Automatic Cuff Blood Pressure Location Right Upper Arm Position Sitting Respiration 17 17 Pulse 86 86 Pulse Source Monitor Temp 97.7 F 97.7 F Temp Source Temporal Artery Scan Pulse Oximetry (%) 98 98 Oxygen Delivery Method Room Air Allergies/Home Meds Allergies & Medications Allergies shrimp Allergy (Verified 04/25/25 18:45) Rash Intake Visit Data Collection New Patient or Established: Established Patient (seen at [facility] within 3 years) Reason for Visit:: obc Do You Feel Safe at Home: Yes Authorities Contacted: N/A PCP or OBGYN visit in last 3 months: Yes Smoking Status Smoking Status: Never smoker Questionnaires PHQ-9 PHQ-2 Over the last 2 weeks, how often have you been bothered by any of the following problems? 1. Little interest or pleasure in doing things: not at all PHQ-9 8. Moving or speaking so slowly that other people could have noticed? - Or the opposite - being so fidgety or restless that you have been moving around a lot more than usual: not at all Source: Developed by Drs. Ren Mckeon, Candi Champagne, Dakota Borrego and colleagues, with an educational italo from [employer]. 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 New OB with complaints of vaginal discharge and burning unclear denies SAB complaints. Green discharge noted. Order GASOLINE FINISHER Lotrimin 1-2 per vagina nightly x 7. New swab plus today. GASOLINE FINISHER Lotrimin x 7 days. Schedule anatomy scan. I reviewed labs and chart with patient. aFP next visit. Discussed SAB precautions 04/01/25 <del>?</del> 21w 0d 75.977 kg 115/72 absent unknown 20 145 active Reports movement. Maternal- medicine was not called patient. Denies leaking, denies bleeding, denies contractions. Patient needs refill on prenatals. Complains of itching chest feet hands. Previous history of cholestasis in Cholestasis labs today. Discussed OB labs. MFM ultrasound pending. Comfort measures for body itching. Discussed labor precautions and return in 4 weeks OB check 05/03/25 <del>?</del> 25w 4d 75.75 kg 106/68 106/68 absent unknown 24 145 active Patient was seen in the ER at [facility] a week ago for upper right sided pain. Labs and a sono revealed that the was doing well and patient was stable. Reports movement. Denies labor contractions. Denies leaking. Repeat bile acids today. Urine culture. Third trimester labs today. Discussed labor precautions. Increase fluids. Patient has a follow-up maternal- medicine June 05. Return in 4 weeks OB check UNIQUE Calculator Estimated Delivery Date Method Current WG Current Estimate 08/12/25 LMP (Certain) 25w 4d Other Estimates 08/19/25 Ultrasound #1 24w 4d 08/12/25 Ultrasound #2 25w 4d 08/12/25 Manual 25w 4d final UNIQUE: 08/12/25 Notes Visit Date: 05/03/25 Last Updated by: Shelley Cody CNM 04/19 bile acid: 6.2, livers normal Visit Date: 04/01/25 Last Updated by: Shelley Cody CNM NIPT-.AFP- Visit Date: 03/01/25 Last Updated by: Shelley Cody CNM 24 yo . lmp 11/05/24. edc: 08/12/25. A+.abs-,rpr;;nr, rub imm, HBSAG-,hiv-, hc-, GC/CT-, UC:-, UT-, NIPT_, carrier screen-, PAP- Office Procedures OB Clinic LOC & Office Proc's Nursing/Assessment Patient Status: Established Patient OB Clinic Nursing Assessment: Medication Reconciliation, Update PMH in EMR and Vital Signs OB Clinic Coordination of Care: Complex Care and Chronic Disease 1-5, Education Complex Pt/Fam, Consent,records obtained, informed consent, Lab and Imaging orders, Results/Orders obtained and Staff clarify orders Special Needs: Heart tones Established Patient Charge Established Patient Point Assignment: 140 Established Patient Point Charge: EP Level 4 (120-155) Assessment & Plan Diagnosis / Problem List (1) Encounter for supervision of high risk in second trimester, antepartum: Status: Acute Plan Third trimester labs today. Include urine culture and bile acids. Discussed labor precautions. Increase fluids. Comfort measures for her second trimester. Continue prenatals. Return in 4 weeks OB check Additional Plan Follow Up: 4 Weeks (obc)
== END 2025-05-03 11:32 | disposition home or self-care (01) ==
LOC: HODSOBC 10:54
PROVIDERS: Supervising Provider Advanced Practice Midwife; Visit Provider Advanced Practice Midwife
DX: O09.92 Supervision of high risk pregnancy, unspecified, second trimester (principal); Z3A.22 22 weeks gestation of pregnancy; Z91.013 Allergy to seafood
CPT/HCPCS: 99214; G0463

== ENCOUNTER 2025-06-02 10:56 | Outpatient (AMB) | payer MEDICAID, SELFPAY ==
[2025-06-02 11:21] VITALS: BP 107/69; PULSE 78; RESP 16; TEMP 36.3; O2SAT 98; BMI 32.4
--- NOTE | 2025-06-02 11:21 | OBCLNT_ITS ---
Vital Signs 06/02/25 11:21 Height 1.57 m Height Method Stated Weight 79.889 kg Weight Measurement Method Standing Scale BMI 32.4 BP 107/69 Blood Pressure Source Automatic Cuff Blood Pressure Location Left Upper Arm Position Sitting Respiration 16 Pulse 78 Pulse Source Monitor Temp 97.3 F Temp Source Oral Pulse Oximetry (%) 98 Oxygen Delivery Method Room Air Allergies/Home Meds Allergies & Medications Allergies shrimp Allergy (Verified 06/02/25 11:21) Rash Medication Reconciliation prenat.vits,serina,kvu-[id number]-qaekz 1 tab PO QDAY 08/14/22 [History Confirmed 06/02/25] vits no.130-ferrous fum 27 mg iron-folic acid 800 mcg tablet ( Vitamin) 1 tab PO QDAY pregancy #60 tabs 04/01/25 [Rx Confirmed 06/02/25] fluticasone 250 mcg-salmeterol 50 mcg/dose blistr powdr for inhalation (Advair Diskus) 1 inh inhalation Q12H asthma #60 ea 04/22/25 [Rx Confirmed 06/02/25] promethazine 12.5 mg tablet 12.5 mg PO TID PRN nausea and vomiting #14 tabs 04/26/25 [Rx Confirmed 06/02/25] ferrous sulfate 325 mg (65 mg iron) tablet 325 mg PO BID #60 tabs 06/02/25 [Rx] ursodiol 250 mg tablet 250 mg PO BID #60 tabs 06/02/25 [Rx] Intake Visit Data Collection New Patient or Established: Established Patient (seen at [facility] within 3 years) Reason for Visit:: CARE Seen by Clinical Staff ONLY (RN/MA): No Steam Trap Worker Required: No Do You Feel Safe at Home: Yes Authorities Contacted: N/A PCP or OBGYN visit in last 3 months: Yes Hx Now: Yes Are you currently on any form of Control: No Pain Present Currently: No Pain Scale Used: Chery-Patel/Numerical Pain scale:: 0 Smoking Status Smoking Status: Never smoker Immunizations Flu Vaccine in the Last 12 Months: No Questionnaires Covid-19 Vaccine Questionnaire Has patient been vacinated for Covid-19 Have you been vacinated for Covid-19: Yes PHQ-9 PHQ-2 Over the last 2 weeks, how often have you been bothered by any of the following problems? 1. Little interest or pleasure in doing things: not at all 2. Feeling down, depressed, or hopeless: not at all Total score: 0 PHQ-9 3. Trouble falling or staying asleep, or sleeping too much: Not at all 4. Feeling tired or having little energy: Not at all 5. Poor appetite or overeating: Not at all 6. Feeling bad about yourself - or that you are a failure or have let yourself or your family down: Not at all 7. Trouble concentrating on things, such as reading the newspaper or watching television: Not at all 8. Moving or speaking so slowly that other people could have noticed? - Or the opposite - being so fidgety or restless that you have been moving around a lot more than usual: not at all 9. Thoughts that you would be better off or of hurting yourself in some way: Not at all Total score: 0 Source: Developed by Drs. Ren Mckeon, Candi Champagne, Dakota Borrego and colleagues, with an educational italo from [employer]. 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: Past Medical History Past Medical History: No Hx Neurological Disorders, No Hx Cardiac Disorders, No Hx Cancer, No Hx Blood Disorders, Yes Hx Gastrointestinal Disorders (constipation and cholestasis), No Hx Renal Disease, No Hx Diabetes Mellitus Type 1 and No Hx Diabetes Mellitus Type 2 Care OB Visit Log OB Flowsheet Initial Weight: Not Recorded Date -?-?-?-?-?-?-?-?-?-?-?-?- EGA Weight BP Alb Glu CTX Pres Fundal ht FHR Mov Dilation Station Effacement Hx Notes Visit Note 03/01/25 -?-?-?-?-?-?-?-?-?-?-?-?- 16w 4d 73.595 kg 73.595 kg 112/74 112/74 absent unknown 15 145 active 24-year-old 2 para 1 at 15 weeks. New OB with complaints of vaginal discharge and burning unclear denies SAB complaints. Green discharge noted. 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 New swab plus to day. [employer] TE[employer]ER Lotrimin x 7 days. Schedule anatomy scan. I reviewed labs and chart with patient. aFP next visit. Discussed SAB precautions 04/01/25 -?-?-?-?-?-?-?-?-?-?-?-?- 21w 0d 75.977 kg 115/72 absent unknown 20 145 active Reports movement. Maternal- medicine was not called patient. Denies leaking, denies bleeding, denies contractions. Patient needs refill on prenatals. Complains of itching chest feet hands. Previous history of cholestasis in Cholestasis labs today. Discussed OB labs. MFM ultrasound pending. Comfort measures for body itching. Discussed labor precautions and return in 4 weeks OB check 05/03/25 -?-?-?-?-?-?-?-?-?-?-?-?- 25w 4d 75.75 kg 106/68 106/68 absent unknown 24 145 active Patient was seen in the ER at [facility] a week ago for upper right sided pain. Labs and a sono revealed that the was doing well and patient was stable. Reports movement. Denies labor contractions. Denies leaking. Repeat bile acids today. Urine culture. Third trimester labs today. Discussed labor precautions. Increase fluids. Patient has a follow-up maternal- medicine June 05. Return in 4 weeks OB check 06/02/25 -?-?-?-?-?-?-?-?-?-?-?-?- 29w 6d 79.889 kg 107/69 absent unknown 28 143 active Patient is concerned that she has symptoms of UTI. Complains of voiding frequently and urgency. Reports good movement. Denies leaking, bleeding, contractions. Continues to itch on her chest and arms. Ursodiol 250 twice daily. Repeat cholestasis labs at 32 weeks. Urine culture today. Continue to increase fluids. Iron twice a day. And continue iron foods. Discussed labor precautions. Return in 3 weeks OB UNIQUE Calculator Estimated Delivery Date Method Current WG Current Estimate 08/12/25 LMP (Certain) 29w 6d Other Estimates 08/19/25 Ultrasound #1 28w 6d 08/12/25 Ultrasound #2 29w 6d 08/12/25 Manual 29w 6d final UNIQUE: Notes Visit Date: 06/02/25 Last Updated by: Shelley Cody CNM 1 hr gtt wnl, rpr;;nr, A1: 4.8 Visit Date: 05/03/25 Last Updated by: Shelley Cody CNM 9/ bile acid: 6.2, livers normal Visit Date: 04/01/25 Last Updated by: Shelley Cody CNM NIPT-.AFP- Visit Date: 03/01/25 Last Updated by: Shelley Cody CNM 24 yo . lmp 11/05/24. edc: 08/12/25. A+.abs-,rpr;;nr, rub imm, HBSAG-,hiv-, hc-, GC/CT-, UC:-, UT-, NIPT_, carrier screen-, PAP- Office Procedures OBC Clinic LOC & Office Proc's Nursing/Assessment Patient Status: Established Patient OB Clinic Nursing Assessment: Medication Reconciliation, Update PMH in EMR and Vital Signs OB Clinic Coordination of Care: Complex Care and Chronic Disease 1-5, Consent,records obtained, informed consent, Education Simp Pt/Fam, 1 Ins Authorization, Lab and Imaging orders, Results/Orders obtained and Staff clarify orders Special Needs: Heart tones Established Patient Charge Established Patient Point Assignment: 150 Established Patient Point Charge: EP Level 4 (120-155) Assessment & Plan Diagnosis / Problem List (1) Encounter for supervision of high risk in third trimester, antepartum: Status: Acute (2) Dysuria during in third trimester: Status: Acute Plan Ursodiol 250 p.o. twice daily. Repeat bile acids and cholestasis labs at 32 weeks. Urine culture today for UTI. Increase fluids. I gave patient prescription for iron 325 to start twice daily. Discussed iron foods. Discussed labor precautions. Return in 3 weeks OB Additional Plan Follow Up: 3 Weeks (obc)
== END 2025-06-02 12:08 | disposition home or self-care (01) ==
LOC: HODSOBC 10:56
PROVIDERS: Supervising Provider Advanced Practice Midwife; Visit Provider Advanced Practice Midwife
DX: O09.893 Supervision of other high risk pregnancies, third trimester (principal); O23.43 Unspecified infection of urinary tract in pregnancy, third trimester; N39.0 Urinary tract infection, site not specified; Z3A.29 29 weeks gestation of pregnancy; Z91.013 Allergy to seafood
CPT/HCPCS: 99214; G0463

== ENCOUNTER 2025-06-21 11:11 | Outpatient (AMB) | payer MEDICAID, SELFPAY ==
[2025-06-21 11:17] VITALS: BP 105/69; PULSE 68; RESP 18; TEMP 36.1; O2SAT 97; BMI 32.4
--- NOTE | 2025-06-21 11:17 | AMB.OBVISIT ---
Vital Signs 06/21/25 11:17 Height 1.57 m Height Method Stated Weight 79.889 kg Weight Measurement Method Standing Scale BMI 32.4 BP 105/69 Blood Pressure Source Automatic Cuff Blood Pressure Location Right Upper Arm Position Sitting Respiration 18 Pulse 68 Pulse Source Monitor Temp 97.0 F Temp Source Temporal Artery Scan Pulse Oximetry (%) 97 Oxygen Delivery Method Room Air Allergies/Home Meds Allergies & Medications Allergies shrimp Allergy (Verified 06/21/25 11:18) Rash Medication Reconciliation prenat.vits,serina,[id number] 1 tab PO QDAY 08/14/22 [History Confirmed 06/21/25] vits no.130-ferrous fum 27 mg iron-folic acid 800 mcg tablet ( Vitamin) 1 tab PO QDAY pregancy #60 tabs 04/01/25 [Rx Confirmed 06/21/25] fluticasone 250 mcg-salmeterol 50 mcg/dose blistr powdr for inhalation (Advair Diskus) 1 inh inhalation Q12H asthma #60 ea 04/22/25 [Rx Confirmed 06/21/25] promethazine 12.5 mg tablet 12.5 mg PO TID PRN nausea and vomiting #14 tabs 04/26/25 [Rx Confirmed 06/21/25] ferrous sulfate 325 mg (65 mg iron) tablet 325 mg PO BID #60 tabs 06/02/25 [Rx Confirmed 06/21/25] ursodiol 250 mg tablet 250 mg PO BID #60 tabs 06/02/25 [Rx Confirmed 06/21/25] Intake Visit Data Collection New Patient or Established: Established Patient (seen at [facility] within 3 years) Reason for Visit:: OBC Seen by Clinical Staff ONLY (RN/MA): No Propeller Inspector Required: No Do You Feel Safe at Home: Yes Authorities Contacted: N/A PCP or OBGYN visit in last 3 months: Yes Date of Last PCP or OBGYN visit: 06/02/25 Hx Now: Yes Are you currently on any form of Control: No Pain Present Currently: No Pain Scale Used: Chery-Patel/Numerical Pain scale:: 0 Smoking Status Smoking Status: Never smoker Immunizations Flu Vaccine in the Last 12 Months: No Flu Vaccine Exclusion Criteria: No Exclusion Criteria Questionnaires Covid-19 Vaccine Questionnaire Has patient been vacinated for Covid-19 Have you been vacinated for Covid-19: No PHQ-9 PHQ-2 Over the last 2 weeks, how often have you been bothered by any of the following problems? 1. Little interest or pleasure in doing things: not at all 2. Feeling down, depressed, or hopeless: not at all Total score: 0 PHQ-9 3. Trouble falling or staying asleep, or sleeping too much: Not at all 4. Feeling tired or having little energy: Not at all 5. Poor appetite or overeating: Not at all 6. Feeling bad about yourself - or that you are a failure or have let yourself or your family down: Not at all 7. Trouble concentrating on things, such as reading the newspaper or watching television: Not at all 8. Moving or speaking so slowly that other people could have noticed? - Or the opposite - being so fidgety or restless that you have been moving around a lot more than usual: not at all 9. Thoughts that you would be better off or of hurting yourself in some way: Not at all Total score: 0 If you checked off any problems, how difficult have these problems made it for you to do your work, take care of things at home, or get along with other people?: not difficult at all Source: Developed by Drs. Ren Mckeon, Candi Champagne, Dakota Borrego and colleagues, with an educational italo from [employer]. 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 New OB with complaints of vaginal discharge and burning unclear denies SAB complaints. Green discharge noted. 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 New swab plus today. 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 Schedule anatomy scan. I reviewed labs and chart with patient. aFP next visit. Discussed SAB precautions 04/01/25 <del>?</del> 21w 0d 75.977 kg 115/72 absent unknown 20 145 active Reports movement. Maternal- medicine was not called patient. Denies leaking, denies bleeding, denies contractions. Patient needs refill on prenatals. Complains of itching chest feet hands. Previous history of cholestasis in Cholestasis labs today. Discussed OB labs. MFM ultrasound pending. Comfort measures for body itching. Discussed labor precautions and return in 4 weeks OB check 05/03/25 <del>?</del> 25w 4d 75.75 kg 106/68 106/68 absent unknown 24 145 active Patient was seen in the ER at [facility] a week ago for upper right sided pain. Labs and a sono revealed that the was doing well and patient was stable. Reports movement. Denies labor contractions. Denies leaking. Repeat bile acids today. Urine culture. Third trimester labs today. Discussed labor precautions. Increase fluids. Patient has a follow-up maternal- medicine June 05. Return in 4 weeks OB check 06/02/25 <del>?</del> 29w 6d 79.889 kg 107/69 absent unknown 28 143 active Patient is concerned that she has symptoms of UTI. Complains of voiding frequently and urgency. Reports good movement. Denies leaking, bleeding, contractions. Continues to itch on her chest and arms. Ursodiol 250 twice daily. Repeat cholestasis labs at 32 weeks. Urine culture today. Continue to increase fluids. Iron twice a day. And continue iron foods. Discussed labor precautions. Return in 3 weeks OB 06/21/25 <del>?</del> 32w 4d 79.889 kg 105/69 absent unknown 32 145 active Patient did not do her labs as ordered. She reports that she still has some itching. She picked up ursodiol it helps some denies leaking, bleeding, contractions. Reports good movement. Patient was given a lab slip to do cholestasis labs today and a CBC. Discussed labor precautions. Kick count twice a day. Continue ursodiol. Return in 2 weeks OB check UNIQUE Calculator Estimated Delivery Date Method Current WG Current Estimate 08/12/25 LMP (Certain) 32w 4d Other Estimates 08/19/25 Ultrasound #1 31w 4d 08/12/25 Ultrasound #2 32w 4d 08/12/25 Manual 32w 4d final UNIQUE: 08/12/25 Notes Visit Date: 06/02/25 Last Updated by: Shelley Cody CNM 1 hr gtt wnl, rpr;;nr, A1: 4.8 Visit Date: 05/03/25 Last Updated by: Shelley Cody CNM 04/19 bile acid: 6.2, livers normal Visit Date: 04/01/25 Last Updated by: Shelley Cody CNM NIPT-.AFP- Visit Date: 03/01/25 Last Updated by: Shelley Cody CNM 24 yo . lmp 11/05/24. edc: 08/12/25. A+.abs-,rpr;;nr, rub imm, HBSAG-,hiv-, hc-, GC/CT-, UC:-, UT-, NIPT_, carrier screen-, PAP- Office Procedures OBC Clinic LOC & Office Proc's Nursing/Assessment Patient Status: Established Patient OB Clinic Nursing Assessment: Medication Reconciliation, Update PMH in EMR and Vital Signs OB Clinic Coordination of Care: Complex Care and Chronic Disease 1-5, Education Complex Pt/Fam, Consent,records obtained, informed consent, Results/Orders obtained and Staff clarify orders Special Needs: Heart tones Established Patient Charge Established Patient Point Assignment: 125 Established Patient Point Charge: EP Level 4 (120-155) Assessment & Plan Diagnosis / Problem List (1) Encounter for supervision of high risk in third trimester, antepartum: Status: Acute Plan labor precautions reviewed with patient. Discussed kick count. Twice a day. Patient sent to do cholestasis labs and a CBC today. Continue ursodiol as directed. Return in 2 weeks OB check Additional Plan Follow Up: 2 Weeks (obc)
== END 2025-06-21 11:42 | disposition home or self-care (01) ==
LOC: HODSOBC 11:11
PROVIDERS: Supervising Provider Advanced Practice Midwife; Visit Provider Advanced Practice Midwife
DX: O09.893 Supervision of other high risk pregnancies, third trimester (principal); O26.893 Other specified pregnancy related conditions, third trimester; L29.9 Pruritus, unspecified; Z3A.32 32 weeks gestation of pregnancy
CPT/HCPCS: 99214; G0463

== ENCOUNTER 2025-07-07 10:11 | Outpatient (AMB) | payer MEDICAID, SELFPAY ==
[2025-07-07 10:33] VITALS: BP 105/69; PULSE 89; RESP 18; TEMP 36.2; O2SAT 98; BMI 33.0
--- NOTE | 2025-07-07 10:33 | AMB.OBPNC ---
Vital Signs 07/07/25 10:33 Height 1.57 m Height Method Stated Weight 81.42 kg Weight Measurement Method Standing Scale BMI 33.0 BP 105/69 Blood Pressure Source Automatic Cuff Blood Pressure Location Right Upper Arm Position Sitting Respiration 18 Pulse 89 Pulse Source Monitor Temp 97.1 F Temp Source Temporal Artery Scan Pulse Oximetry (%) 98 Oxygen Delivery Method Room Air Allergies/Home Meds Allergies & Medications Allergies shrimp Allergy (Verified 06/21/25 11:18) Rash Medication Reconciliation prenat.vits,serina,[id number] 1 tab PO QDAY 08/14/22 [History Confirmed 07/07/25] vits no.130-ferrous fum 27 mg iron-folic acid 800 mcg tablet ( Vitamin) 1 tab PO QDAY pregancy #60 tabs 04/01/25 [Rx Confirmed 07/07/25] fluticasone 250 mcg-salmeterol 50 mcg/dose blistr powdr for inhalation (Advair Diskus) 1 inh inhalation Q12H asthma #60 ea 04/22/25 [Rx Confirmed 07/07/25] promethazine 12.5 mg tablet 12.5 mg PO TID PRN nausea and vomiting #14 tabs 04/26/25 [Rx Confirmed 07/07/25] ferrous sulfate 325 mg (65 mg iron) tablet 325 mg PO BID #60 tabs 06/02/25 [Rx Confirmed 07/07/25] ursodiol 250 mg tablet 250 mg PO BID #60 tabs 06/02/25 [Rx Confirmed 07/07/25] Immunizations Immunizations Flu Vaccine in the Last 12 Months: No Flu Vaccine Exclusion Criteria: Refused by Patient Care OB Visit Log OB Flowsheet Initial Weight: Not Recorded Date <del>?</del> EGA Weight BP Alb Glu CTX Pres Fundal ht FHR Mov Dilation Station Effacement Hx Notes Visit Note 03/01/25 <del>?</del> 16w 4d 73.595 kg 73.595 kg 112/74 112/74 absent unknown 15 145 active 24-year-old 2 para 1 at 15 weeks. New OB with complaints of vaginal discharge and burning unclear denies SAB complaints. Green discharge noted. 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 New swab plus today. ANALYTICAL RESEARCH CHEMIST Lotrimin x 7 days. Schedule anatomy scan. I reviewed labs and chart with patient. aFP next visit. Discussed SAB precautions 04/01/25 <del>?</del> 21w 0d 75.977 kg 115/72 absent unknown 20 145 active Reports movement. Maternal- medicine was not called patient. Denies leaking, denies bleeding, denies contractions. Patient needs refill on prenatals. Complains of itching chest feet hands. Previous history of cholestasis in Cholestasis labs today. Discussed OB labs. MFM ultrasound pending. Comfort measures for body itching. Discussed labor precautions and return in 4 weeks OB check 05/03/25 <del>?</del> 25w 4d 75.75 kg 106/68 106/68 absent unknown 24 145 active Patient was seen in the ER at [facility] a week ago for upper right sided pain. Labs and a sono revealed that the was doing well and patient was stable. Reports movement. Denies labor contractions. Denies leaking. Repeat bile acids today. Urine culture. Third trimester labs today. Discussed labor precautions. Increase fluids. Patient has a follow-up maternal- medicine June 05. Return in 4 weeks OB check 06/02/25 <del>?</del> 29w 6d 79.889 kg 107/69 absent unknown 28 143 active Patient is concerned that she has symptoms of UTI. Complains of voiding frequently and urgency. Reports good movement. Denies leaking, bleeding, contractions. Continues to itch on her chest and arms. Ursodiol 250 twice daily. Repeat cholestasis labs at 32 weeks. Urine culture today. Continue to increase fluids. Iron twice a day. And continue iron foods. Discussed labor precautions. Return in 3 weeks OB 06/21/25 <del>?</del> 32w 4d 79.889 kg 105/69 absent unknown 32 145 active Patient did not do her labs as ordered. She reports that she still has some itching. She picked up ursodiol it helps some denies leaking, bleeding, contractions. Reports good movement. Patient was given a lab slip to do cholestasis labs today and a CBC. Discussed labor precautions. Kick count twice a day. Continue ursodiol. Return in 2 weeks OB check 07/07/25 <del>?</del> 34w 6d 81.42 kg 105/69 absent cephalic 34 156 active Reports good movement. Denies leaking, bleeding, contractions Patient will start disability July 31. Last date of work will be July 30. Discussed labor precautions and kick count. Continue ursodiol 300 twice daily. Repeat bile acids next visit. Tdap today. Kick count twice a day. Labor precautions discussed UNIQUE Calculator Estimated Delivery Date Method Current WG Current Estimate 08/12/25 LMP (Certain) 34w 6d Other Estimates 08/19/25 Ultrasound #1 33w 6d 08/12/25 Ultrasound #2 34w 6d 08/12/25 Manual 34w 6d final UNIQUE: 08/12/25 Notes Visit Date: 07/07/25 Last Updated by: Shelley Cody CNM cholestasis: CMP: wnl, Bile ACIDS: total: 4.5 Visit Date: 06/02/25 Last Updated by: Shelley Cody CNM 1 hr gtt wnl, rpr;;nr, A1: 4.8 Visit Date: 05/03/25 Last Updated by: Shelley Cody CNM 9/ bile acid: 6.2, livers normal Visit Date: 04/01/25 Last Updated by: Shelley Cody CNM NIPT-.AFP- Visit Date: 03/01/25 Last Updated by: Shelley Cody CNM 24 yo . lmp 11/05/24. edc: 08/12/25. A+.abs-,rpr;;nr, rub imm, HBSAG-,hiv-, hc-, GC/CT-, UC:-, UT-, NIPT_, carrier screen-, PAP- Office Procedures OBC Clinic LOC & Office Proc's Nursing/Assessment Patient Status: Established Patient OB Clinic Nursing Assessment: Medication Reconciliation, Update PMH in EMR and Vital Signs OB Clinic Coordination of Care: Complex Care and Chronic Disease 1-5, Education Complex Pt/Fam, Consent,records obtained, informed consent, Lab and Imaging orders, Results/Orders obtained and Staff clarify orders Special Needs: Heart tones Established Patient Charge Established Patient Point Assignment: 140 Established Patient Point Charge: EP Level 4 (120-155) Injection/Vaccine Admin SQ Im Injection: Yes Immunizations diphth,pertus(acell),tetanus 2.5 Lf unit-8 mcg-5 Lf/0.5mL IM syringe Performing Provider: Shelley Cody CNM Performing Location: [facility] Administered by: Constance Guidry MA on 07/07/25 11:14 Dose Route Admin Location Dispensed Lot Number Expiration Date Package 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 Last day of work will be July 30. Disability will start July 31, 2025. Continue ursodiol as directed. Repeat cholestasis labs next visit. Discussed labor precautions. Kick count twice a day. Return in 2 weeks OB check Additional Plan Follow Up: 2 Weeks (obc)
== END 2025-07-07 11:02 | disposition home or self-care (01) ==
LOC: HODSOBC 10:11
PROVIDERS: Supervising Provider Advanced Practice Midwife; Visit Provider Advanced Practice Midwife
DX: O09.893 Supervision of other high risk pregnancies, third trimester (principal); O26.643 Intrahepatic cholestasis of pregnancy, third trimester; Z3A.34 34 weeks gestation of pregnancy; Z23 Encounter for immunization; Z91.013 Allergy to seafood
CPT/HCPCS: 90471; 90715; 96372; 99214; G0463

== ENCOUNTER 2025-07-16 18:33 | Observation (INO) | payer MEDICAID, SELFPAY ==
[2025-07-16] VITALS (15 sets, daily range): BP systolic 133; BP diastolic 74; PULSE 88–100; RESP 20–97; TEMP 37; O2SAT 96–98; BMI 33.3
== END 2025-07-16 20:08 | disposition home or self-care (01) ==
PROVIDERS: Admitting Provider Obstetrics & Gynecology; Visit Provider Obstetrics & Gynecology
DX: O47.03 False labor before 37 completed weeks of gestation, third trimester (principal); Z3A.36 36 weeks gestation of pregnancy
CPT/HCPCS: 59025; 59899; 80307

== ENCOUNTER 2025-07-21 13:22 | Outpatient (AMB) | payer MEDICAID, SELFPAY ==
[2025-07-21 13:32] VITALS: BP 115/73; PULSE 83; RESP 18; TEMP 36.8; O2SAT 98
--- NOTE | 2025-07-21 13:32 | OBCLNT_ITS ---
Vital Signs 07/21/25 13:32 Weight 83.688 kg Weight Measurement Method Standing Scale BP 115/73 Blood Pressure Source Automatic Cuff Blood Pressure Location Left Upper Arm Position Sitting Respiration 18 Pulse 83 Pulse Source Monitor Temp 98.2 F Temp Source Oral Pulse Oximetry (%) 98 Oxygen Delivery Method Room Air Allergies/Home Meds Allergies & Medications Allergies shrimp Allergy (Verified 07/21/25 13:33) Rash Medication Reconciliation prenat.vits,serina,[id number] 1 tab PO QDAY 08/14/22 [History Confirmed 07/21/25] vits no.130-ferrous fum 27 mg iron-folic acid 800 mcg tablet ( Vitamin) 1 tab PO QDAY pregancy #60 tabs 04/01/25 [Rx Confirmed 07/21/25] fluticasone 250 mcg-salmeterol 50 mcg/dose blistr powdr for inhalation (Advair Diskus) 1 inh inhalation Q12H asthma #60 ea 04/22/25 [Rx Confirmed 07/21/25] promethazine 12.5 mg tablet 12.5 mg PO TID PRN nausea and vomiting #14 tabs 04/26/25 [Rx Confirmed 07/21/25] ferrous sulfate 325 mg (65 mg iron) tablet 325 mg PO BID #60 tabs 06/02/25 [Rx Confirmed 07/21/25] ursodiol 250 mg tablet 250 mg PO BID #60 tabs 06/02/25 [Rx Confirmed 07/21/25] Immunizations Immunizations Flu Vaccine in the Last 12 Months: No Flu Vaccine Exclusion Criteria: No Exclusion Criteria Care OB Visit Log OB Flowsheet Initial Weight: Not Recorded Date -?-?-?-?-?-?-?-?-?-?-?-?- EGA Weight BP Alb Glu CTX Pres Fundal ht FHR Mov Dilation Station Effacement Hx Notes Visit Note 03/01/25 -?-?-?-?-?-?-?-?-?-?-?-?- 16w 4d 73.595 kg 73.595 kg 112/74 112/74 absent unknown 15 145 active 24-year-old 2 para 1 at 15 weeks. New OB with complaints of vaginal discharge and burning unclear denies SAB complaints. Green discharge noted. Order VAULT TELLER Lotrimin 1-2 per vagina nightly x 7. New swab plus to day. VAULT TELLER Lotrimin x 7 days. Schedule anatomy scan. I reviewed labs and chart with patient. aFP next visit. Discussed SAB precautions 04/01/25 -?-?-?-?-?-?-?-?-?-?-?-?- 21w 0d 75.977 kg 115/72 absent unknown 20 145 active Reports movement. Maternal- medicine was not called patient. Denies leaking, denies bleeding, denies contractions. Patient needs refill on prenatals. Complains of itching chest feet hands. Previous history of cholestasis in Cholestasis labs today. Discussed OB labs. MFM ultrasound pending. Comfort measures for body itching. Discussed labor precautions and return in 4 weeks OB check 05/03/25 -?-?-?-?-?-?-?-?-?-?-?-?- 25w 4d 75.75 kg 106/68 106/68 absent unknown 24 145 active Patient was seen in the ER at [facility] a week ago for upper right sided pain. Labs and a sono revealed that the was doing well and patient was stable. Reports movement. Denies labor contractions. Denies leaking. Repeat bile acids today. Urine culture. Third trimester labs today. Discussed labor precautions. Increase fluids. Patient has a follow-up maternal- medicine June 05. Return in 4 weeks OB check 06/02/25 -?-?-?-?-?-?-?-?-?-?-?-?- 29w 6d 79.889 kg 107/69 absent unknown 28 143 active Patient is concerned that she has symptoms of UTI. Complains of voiding frequently and urgency. Reports good movement. Denies leaking, bleeding, contractions. Continues to itch on her chest and arms. Ursodiol 250 twice daily. Repeat cholestasis labs at 32 weeks. Urine culture today. Continue to increase fluids. Iron twice a day. And continue iron foods. Discussed labor precautions. Return in 3 weeks OB 06/21/25 -?-?-?-?-?-?-?-?-?-?-?-?- 32w 4d 79.889 kg 105/69 absent unknown 32 145 active Patient did not do her labs as ordered. She reports that she still has some itching. She picked up ursodiol it helps some denies leaking, bleeding, contractions. Reports good movement. Patient was give n a lab slip to do cholestasis labs today and a CBC. Discussed labor precautions. Kick count twice a day. Continue ursodiol. Return in 2 weeks OB check 07/07/25 -?-?-?-?-?-?-?-?-?-?-?-?- 34w 6d 81.42 kg 105/69 absent cephalic 34 156 active Reports good movement. Denies leaking, bleeding, contractions Patient will start disability July 31. Last date of work will be July 30. Discussed labor precautions and kick count. Continue ursodiol 300 twice daily. Repeat bile acids next visit. Tdap today. Kick count twice a day. Labor precautions discussed 07/21/25 -?-?-?-?-?-?-?-?-?-?-?-?- 36w 6d 83.688 kg 115/73 absent cephalic 36 156 active 1 -4 50 Increased pressure and contractions. Reports good movement. Denies leaking or bleeding reports itching improved on ursodiol Disability will start July Disability will start [facility] . disability starts 07/31/25. [facility] bid, repeat cholestasis lab today. GBS. ER precaution. rtc 1 week UNIQUE Calculator Estimated Delivery Date Method Current WG Current Estimate 08/12/25 LMP (Certain) 36w 6d Other Estimates 08/19/25 Ultrasound #1 35w 6d 08/12/25 Ultrasound #2 36w 6d 08/12/25 Manual 36w 6d final UNIQUE: Notes Visit Date: 07/07/25 Last Updated by: Shelley Cody CNM cholestasis: CMP: wnl, Bile ACIDS: total: 4.5 Visit Date: 06/02/25 Last Updated by: Shelley Cody CNM 1 hr gtt wnl, rpr;;nr, A1: 4.8 Visit Date: 05/03/25 Last Updated by: Shelley Cody CNM / bile acid: 6.2, livers normal Visit Date: 04/01/25 Last Updated by: Shelley Cody CNM NIPT-.AFP- Visit Date: 03/01/25 Last Updated by: Shelley Cody CNM 24 yo . lmp 11/05/24. edc: 08/12/25. A+.abs-,rpr;;nr, rub imm, HBSAG-,hiv-, hc-, GC/CT-, UC:-, UT-, NIPT_, carrier screen-, PAP- Office Procedures OBC Clinic LOC & Office Proc's Nursing/Assessment Patient Status: Established Patient OB Clinic Nursing Assessment: Medication Reconciliation, Update PMH in EMR and Vital Signs OB Clinic Coordination of Care: Consent,records obtained, informed consent, Education Simp Pt/Fam, Lab and Imaging orders and Results/Orders obtained Special Needs: Heart tones Established Patient Charge Established Patient Point Assignment: 100 Established Patient Point Charge: EP Level 3 (80-115) Assessment & Plan Diagnosis / Problem List (1) Encounter for supervision of high risk in third trimester, antepartum: Status: Acute (2) Cholestasis during : Status: Acute Qualifiers: Trimester: third trimester Qualified Code(s): O26.643 - Intrahepatic cholestasis of , third trimester Plan Cholestasis labs today. Continue ursodiol. Reviewed kick count twice a day. Discussed ER precautions parameters. GBS today disability will start July 31 Additional Plan Follow Up: 1 Week (obc)
== END 2025-07-21 14:07 | disposition home or self-care (01) ==
LOC: HODSOBC 13:22
PROVIDERS: Supervising Provider Advanced Practice Midwife; Visit Provider Advanced Practice Midwife
DX: O09.893 Supervision of other high risk pregnancies, third trimester (principal); O26.643 Intrahepatic cholestasis of pregnancy, third trimester; Z3A.36 36 weeks gestation of pregnancy; Z36.85 Encounter for antenatal screening for Streptococcus B; Z91.013 Allergy to seafood
CPT/HCPCS: 99213; G0463

== ENCOUNTER 2025-07-28 09:12 | Outpatient (AMB) | payer MEDICAID, SELFPAY ==
--- NOTE | 2025-07-28 09:26 | OBCLNT_ITS ---
Vital Signs 07/28/25 09:27 Weight 83.121 kg Weight Measurement Method Standing Scale BP 118/75 Blood Pressure Source Automatic Cuff Blood Pressure Location Right Upper Arm Position Sitting Respiration 18 Pulse 92 Pulse Source Monitor Temp 98.2 F Temp Source Oral Pulse Oximetry (%) 98 Oxygen Delivery Method Room Air Allergies/Home Meds Allergies & Medications Allergies shrimp Allergy (Verified 07/28/25 09:27) Rash Medication Reconciliation prenat.vits,serina,cib-[id number]-[id number] 1 tab PO QDAY 08/14/22 [History Confirmed 07/28/25] vits no.130-ferrous fum 27 mg iron-folic acid 800 mcg tablet ( Vitamin) 1 tab PO QDAY pregancy #60 tabs 04/01/25 [Rx Confirmed 07/28/25] fluticasone 250 mcg-salmeterol 50 mcg/dose blistr powdr for inhalation (Advair Diskus) 1 inh inhalation Q12H asthma #60 ea 04/22/25 [Rx Confirmed 07/28/25] promethazine 12.5 mg tablet 12.5 mg PO TID PRN nausea and vomiting #14 tabs 04/26/25 [Rx Confirmed 07/28/25] ferrous sulfate 325 mg (65 mg iron) tablet 325 mg PO BID #60 tabs 06/02/25 [Rx Confirmed 07/28/25] ursodiol 250 mg tablet 250 mg PO BID #60 tabs 06/02/25 [Rx Confirmed 07/28/25] Immunizations Immunizations Flu Vaccine in the Last 12 Months: No Flu Vaccine Exclusion Criteria: Refused by Patient Care OB Visit Log OB Flowsheet Initial Weight: Not Recorded Date -?-?-?-?-?-?-?-?-?-?-?-?- EGA Weight BP Alb Glu CTX Pres Fundal ht FHR Mov Dilation Station Effacement Hx Notes Visit Note 03/01/25 -?-?-?-?-?-?-?-?-?-?-?-?- 16w 4d 73.595 kg 73.595 kg 112/74 112/74 absent unknown 15 145 active 24-year-old 2 para 1 at 15 weeks. New OB with complaints of vaginal discharge and burning unclear denies SAB complaints. Green discharge noted. Order PAST DUE ACCOUNTS CLERK Lotrimin 1-2 per vagina nightly x 7. New swab plus to day. PAST DUE ACCOUNTS CLERK Lotrimin x 7 days. Schedule anatomy scan. I reviewed labs and chart with patient. aFP next visit. Discussed SAB precautions 04/01/25 -?-?-?-?-?-?-?-?-?-?-?-?- 21w 0d 75.977 kg 115/72 absent unknown 20 145 active Reports movement. Maternal- medicine was not called patient. Denies leaking, denies bleeding, denies contractions. Patient needs refill on prenatals. Complains of itching chest feet hands. Previous history of cholestasis in Cholestasis labs today. Discussed OB labs. MFM ultrasound pending. Comfort measures for body itching. Discussed labor precautions and return in 4 weeks OB check 05/03/25 -?-?-?-?-?-?-?-?-?-?-?-?- 25w 4d 75.75 kg 106/68 106/68 absent unknown 24 145 active Patient was seen in the ER at [facility] a week ago for upper right sided pain. Labs and a sono revealed that the was doing well and patient was stable. Reports movement. Denies labor contractions. Denies leaking. Repeat bile acids today. Urine culture. Third trimester labs today. Discussed labor precautions. Increase fluids. Patient has a follow-up maternal- medicine June 05. Return in 4 weeks OB check 06/02/25 -?-?-?-?-?-?-?-?-?-?-?-?- 29w 6d 79.889 kg 107/69 absent unknown 28 143 active Patient is concerned that she has symptoms of UTI. Complains of voiding frequently and urgency. Reports good movement. Denies leaking, bleeding, contractions. Continues to itch on her chest and arms. Ursodiol 250 twice daily. Repeat cholestasis labs at 32 weeks. Urine culture today. Continue to increase fluids. Iron twice a day. And continue iron foods. Discussed labor precautions. Return in 3 weeks OB 06/21/25 -?-?-?-?-?-?-?-?-?-?-?-?- 32w 4d 79.889 kg 105/69 absent unknown 32 145 active Patient did not do her labs as ordered. She reports that she still has some itching. She picked up ursodiol it helps some denies leaking, bleeding, contractions. Reports good movement. Patient was give n a lab slip to do cholestasis labs today and a CBC. Discussed labor precautions. Kick count twice a day. Continue ursodiol. Return in 2 weeks OB check 07/07/25 -?-?-?-?-?-?-?-?-?-?-?-?- 34w 6d 81.42 kg 105/69 absent cephalic 34 156 active Reports good movement. Denies leaking, bleeding, contractions Patient will start disability July 31. Last date of work will be July 30. Discussed labor precautions and kick count. Continue ursodiol 300 twice daily. Repeat bile acids next visit. Tdap today. Kick count twice a day. Labor precautions discussed 07/21/25 -?-?-?-?-?-?-?-?-?-?-?-?- 36w 6d 83.688 kg 115/73 absent cephalic 36 156 active 1 -4 50 Increased pressure and contractions. Reports good movement. Denies leaking or bleeding reports itching improved on ursodiol Disability will start July Disability will start [facility] er . disability starts 07/31/25. [facility] bid, repeat cholestasis lab today. GBS. ER precaution. rtc 1 week 07/28/25 -?-?-?-?-?-?-?-?-?-?-?-?- 37w 6d 83.121 kg 118/75 absent cephalic 37 156 active 1 -4 50 Reports good movement. Denies any contractions, leaking or bleeding. No itching or general itching. Patient wanted a membrane sweep Schedule induction of labor for August 08, 2025. Discussed induction with patient. Discussed labor precautions and kick count twice a day. Return in a week for OB check UNIQUE Calculator Estimated Delivery Date Method Current WG Current Estimate 08/12/25 LMP (Certain) 37w 6d Other Estimates 08/19/25 Ultrasound #1 36w 6d 08/12/25 Ultrasound #2 37w 6d 08/12/25 Manual 37w 6d final UNIQUE: Notes Visit Date: 07/28/25 Last Updated by: Shelley Cody CNM bile acid total: 6.3. CMP wnl, GBS- Visit Date: 07/07/25 Last Updated by: Shelley Cody CNM cholestasis: CMP: wnl, Bile ACIDS: total: 4.5 Visit Date: 06/02/25 Last Updated by: Shelley Cody CNM 1 hr gtt wnl, rpr;;nr, A1: 4.8 Visit Date: 05/03/25 Last Updated by: Shelley Cody CNM 9/8 bile acid: 6.2, livers normal Visit Date: 04/01/25 Last Updated by: Shelley oCdy CNM NIPT-.AFP- Visit Date: 03/01/25 Last Updated by: Shelley Cody CNM 24 yo . lmp 11/05/24. edc: 08/12/25. A+.abs-,rpr;;nr, rub imm, HBSAG-,hiv-, hc-, GC/CT-, UC:-, UT-, NIPT_, carrier screen-, PAP- Office Procedures OBC Clinic LOC & Office Proc's Nursing/Assessment Patient Status: Established Patient OB Clinic Nursing Assessment: Medication Reconciliation, Update PMH in EMR and Vital Signs OB Clinic Coordination of Care: Consent,records obtained, informed consent, Education Simp Pt/Fam, Lab and Imaging orders, Results/Orders obtained and Staff clarify orders Special Needs: Heart tones Established Patient Charge Established Patient Point Assignment: 110 Established Patient Point Charge: EP Level 3 (80-115) Assessment & Plan Diagnosis / Problem List (1) Encounter for supervision of high risk in third trimester, antepartum: Status: Acute Plan Discussed labor precautions and kick count. Schedule induction August 08. We discussed induction. Discussed ER precautions. Increase fluids and return in a week OB check Additional Plan Follow Up: 1 Week (obc)
[2025-07-28 09:27] VITALS: BP 118/75; PULSE 92; RESP 18; TEMP 36.8; O2SAT 98
== END 2025-07-28 10:05 | disposition home or self-care (01) ==
LOC: HODSOBC 09:12
PROVIDERS: Supervising Provider Advanced Practice Midwife; Visit Provider Advanced Practice Midwife
DX: O09.93 Supervision of high risk pregnancy, unspecified, third trimester (principal); Z3A.37 37 weeks gestation of pregnancy; Z91.013 Allergy to seafood; Z28.21 Immunization not carried out because of patient refusal
CPT/HCPCS: 99213; G0463

== ENCOUNTER 2025-08-06 09:00 | Outpatient (AMB) | payer MEDICAID, SELFPAY ==
--- NOTE | 2025-08-06 09:02 | OBCLNT_ITS ---
Vital Signs 08/06/25 09:11 Weight 84.482 kg Weight Measurement Method Standing Scale BP 116/74 Blood Pressure Source Automatic Cuff Blood Pressure Location Left Upper Arm Position Sitting Respiration 18 Pulse 90 Pulse Source Monitor Temp 98.2 F Temp Source Oral Pulse Oximetry (%) 98 Oxygen Delivery Method Room Air Allergies/Home Meds Allergies & Medications Allergies shrimp Allergy (Verified 08/06/25 09:12) Rash Medication Reconciliation prenat.vits,serina,rqd-[id number] 1 tab PO QDAY 08/14/22 [History Confirmed 08/06/25] vits no.130-ferrous fum 27 mg iron-folic acid 800 mcg tablet ( Vitamin) 1 tab PO QDAY pregancy #60 tabs 04/01/25 [Rx Confirmed 08/06/25] fluticasone 250 mcg-salmeterol 50 mcg/dose blistr powdr for inhalation (Advair Diskus) 1 inh inhalation Q12H asthma #60 ea 04/22/25 [Rx Confirmed 08/06/25] promethazine 12.5 mg tablet 12.5 mg PO TID PRN nausea and vomiting #14 tabs 04/26/25 [Rx Confirmed 08/06/25] ferrous sulfate 325 mg (65 mg iron) tablet 325 mg PO BID #60 tabs 06/02/25 [Rx Confirmed 08/06/25] ursodiol 250 mg tablet 250 mg PO BID #60 tabs 06/02/25 [Rx Confirmed 08/06/25] Immunizations Immunizations Flu Vaccine in the Last 12 Months: No Flu Vaccine Exclusion Criteria: Refused by Patient Care OB Visit Log OB Flowsheet Initial Weight: Not Recorded Date -?-?-?-?-?-?-?-?-?-?-?-?- EGA Weight BP Alb Glu CTX Pres Fundal ht FHR Mov Dilation Station Effacement Hx Notes Visit Note 03/01/25 -?-?-?-?-?-?-?-?-?-?-?-?- 16w 4d 73.595 kg 73.595 kg 112/74 112/74 absent unknown 15 145 active 24-year-old 2 para 1 at 15 weeks. New OB with complaints of vaginal discharge and burning unclear denies SAB complaints. Green discharge noted. Order DATA ANALYSIS INTERN Lotrimin 1-2 per vagina nightly x 7. New swab plus to day. DATA ANALYSIS INTERN Lotrimin x 7 days. Schedule anatomy scan. I reviewed labs and chart with patient. aFP next visit. Discussed SAB precautions 04/01/25 -?-?-?-?-?-?-?-?-?-?-?-?- 21w 0d 75.977 kg 115/72 absent unknown 20 145 active Reports movement. Maternal- medicine was not called patient. Denies leaking, denies bleeding, denies contractions. Patient needs refill on prenatals. Complains of itching chest feet hands. Previous history of cholestasis in Cholestasis labs today. Discussed OB labs. MFM ultrasound pending. Comfort measures for body itching. Discussed labor precautions and return in 4 weeks OB check 05/03/25 -?-?-?-?-?-?-?-?-?-?-?-?- 25w 4d 75.75 kg 106/68 106/68 absent unknown 24 145 active Patient was seen in the ER at [facility] a week ago for upper right sided pain. Labs and a sono revealed that the was doing well and patient was stable. Reports movement. Denies labor contractions. Denies leaking. Repeat bile acids today. Urine culture. Third trimester labs today. Discussed labor precautions. Increase fluids. Patient has a follow-up maternal- medicine June 05. Return in 4 weeks OB check 06/02/25 -?-?-?-?-?-?-?-?-?-?-?-?- 29w 6d 79.889 kg 107/69 absent unknown 28 143 active Patient is concerned that she has symptoms of UTI. Complains of voiding frequently and urgency. Reports good movement. Denies leaking, bleeding, contractions. Continues to itch on her chest and arms. Ursodiol 250 twice daily. Repeat cholestasis labs at 32 weeks. Urine culture today. Continue to increase fluids. Iron twice a day. And continue iron foods. Discussed labor precautions. Return in 3 weeks OB 06/21/25 -?-?-?-?-?-?-?-?-?-?-?-?- 32w 4d 79.889 kg 105/69 absent unknown 32 145 active Patient did not do her labs as ordered. She reports that she still has some itching. She picked up ursodiol it helps some denies leaking, bleeding, contractions. Reports good movement. Patient was give n a lab slip to do cholestasis labs today and a CBC. Discussed labor precautions. Kick count twice a day. Continue u rsodiol. Return in 2 weeks OB check 07/07/25 -?-?-?-?-?-?-?-?-?-?-?-?- 34w 6d 81.42 kg 105/69 absent cephalic 34 156 active Reports good movement. Denies leaking, bleeding, contractions Patient will start disability July 31. Last date of work will be July 30. Discussed labor precautions and kick count. Continue ursodiol 300 twice daily. Repeat bile acids next visit. Tdap today. Kick count twice a day. Labor precautions discussed 07/21/25 -?-?-?-?-?-?-?-?-?-?-?-?- 36w 6d 83.688 kg 115/73 absent cephalic 36 156 active 1 -4 50 Increased pressure and contractions. Reports good movement. Denies leaking or bleeding reports itching improved on ursodiol Disability will start July Disability will start [facility] er . disability starts 07/31/25. [facility] bid, repeat cholestasis lab today. GBS. ER precaution. rtc 1 week 07/28/25 -?-?-?-?-?-?-?-?-?-?-?-?- 37w 6d 83.121 kg 118/75 absent cephalic 37 156 active 1 -4 50 Reports good movement. Denies any contractions, leaking or bleeding. No itching or general itching. Patient wanted a membrane sweep Schedule induction of labor for August 08, 2025. Discussed induction with patient. Discussed labor precautions and kick count twice a day. Return in a week for OB check UNIQUE Calculator Estimated Delivery Date Method Current WG Current Estimate 08/12/25 LMP (Certain) 39w 1d Other Estimates 08/19/25 Ultrasound #1 38w 1d 08/12/25 Ultrasound #2 39w 1d 08/12/25 Manual 39w 1d final UNIQUE: Notes Visit Date: 07/28/25 Last Updated by: Shelley Cody CNM bile acid total: 6.3. CMP wnl, GBS- Visit Date: 07/07/25 Last Updated by: Shelley Cody CNM cholestasis: CMP: wnl, Bile ACIDS: total: 4.5 Visit Date: 06/02/25 Last Updated by: Shelley Cody CNM 1 hr gtt wnl, rpr;;nr, A1: 4.8 Visit Date: 05/03/25 Last Updated by: Shelley Cody CNM 9/8 bile acid: 6.2, livers normal Visit Date: 04/01/25 Last Updated by: Shelley Cody CNM NIPT-.AFP- Visit Date: 03/01/25 Last Updated by: Shelley Cody CNM 24 yo . lmp 11/05/24. edc: 08/12/25. A+.abs-,rpr;;nr, rub imm, HBSAG-,hiv-, hc-, GC/CT-, UC:-, UT-, NIPT_, carrier screen-, PAP- Office Procedures OBC Clinic LOC & Office Proc's Nursing/Assessment Patient Status: Established Patient OB Clinic Nursing Assessment: Medication Reconciliation, Update PMH in EMR and Vital Signs OB Clinic Coordination of Care: Complex Care and Chronic Disease 1-5, Consent,records obtained, informed consent, Education Simp Pt/Fam, Lab and Imaging orders, Results/Orders obtained and Staff clarify orders Special Needs: Heart tones Established Patient Charge Established Patient Point Assignment: 135 Established Patient Point Charge: EP Level 4 (120-155) Assessment & Plan Diagnosis / Problem List (1) Encounter for supervision of high risk in third trimester, antepartum: Status: Acute Plan Kick count twice a day. Discussed induction of labor on August 08. Discussed comfort measures for back pain and labor. Discussed danger signs symptoms and ER precautions.
[2025-08-06 09:11] VITALS: BP 116/74; PULSE 90; RESP 18; TEMP 36.8; O2SAT 98
== END 2025-08-06 09:39 | disposition home or self-care (01) ==
LOC: HODSOBC 09:00
PROVIDERS: Supervising Provider Advanced Practice Midwife; Visit Provider Advanced Practice Midwife
DX: O09.893 Supervision of other high risk pregnancies, third trimester (principal); O99.513 Diseases of the respiratory system complicating pregnancy, third trimester; J45.909 Unspecified asthma, uncomplicated; Z3A.39 39 weeks gestation of pregnancy; Z28.21 Immunization not carried out because of patient refusal; Z79.51 Long term (current) use of inhaled steroids; Z91.013 Allergy to seafood
CPT/HCPCS: 99214; G0463

== ENCOUNTER 2025-08-11 21:26 | Outpatient (CLI) | payer MEDICAID, SELFPAY ==
[2025-08-11 21:32] VITALS: BMI 34.9
[2025-08-11 21:38] VITALS: BP 120/74; PULSE 93; RESP 17; RESP 98; TEMP 37.2
== END 2025-08-11 22:15 | disposition home or self-care (01) ==
LOC: S4S1 21:29 → S4SX 21:29
PROVIDERS: Referring Provider Obstetrics & Gynecology; Visit Provider Advanced Practice Midwife
DX: Z34.83 Encounter for supervision of other normal pregnancy, third trimester (principal); Z36.9 Encounter for antenatal screening, unspecified; Z3A.39 39 weeks gestation of pregnancy
CPT/HCPCS: 59025